=== PATIENT | male | born 1975 | race Caucasian/White ===

== ENCOUNTER 2019-01-14 13:37 | Inpatient (IN) | payer MEDICAID, OTHER ==
[2019-01-14] MEDS: HYDROmorphONE 0.5 MG/0.5 ML SYG IV ×4 (14:07→23:49)
[2019-01-14] MEDS: SOD CHLORIDE 0.9% 1,000 ML IV ×2 (14:07→19:33)
[2019-01-14] MEDS ORDERED: ONDANSETRON 4 MG INJ (14:09)
[2019-01-14] MEDS: HYDROmorphONE 2 MG/ML SYG IV (15:17)
[2019-01-14 18:28] LABS: ADD MAN DIFF? NO
[2019-01-14 18:30] LABS: WHITE BLOOD COUNT 13.1 10^3/ul (4.8-10.8)
[2019-01-14 18:30] LABS: BASOPHILS % 0.3 % (0.0-2.0); EOSINOPHILS % 0.3 % (0.0-7.0); HEMATOCRIT 43.1 % (42.0-52.0); HEMOGLOBIN 14.1 g/dl (14.0-18.0); LYMPHOCYTES # 1.2 10^3/ul (0.8-2.9); LYMPHOCYTES % 9.4 % (15.0-51.0); MEAN CORPUSCULAR HEMOGLOBIN 29.3 pg (29.0-33.0); MEAN CORPUSCULAR HGB CONC 32.7 g/dl (32.0-37.0); MEAN CORPUSCULAR VOLUME 89.4 fl (82.0-101.0); MEAN PLATELET VOLUME 10.4 fl (7.4-10.4); MONOCYTE # 0.9 10^3/ul (0.3-0.9); NEUTROPHIL # 10.8 10^3/ul (1.6-7.5); NEUTROPHILS % 82.6 % (39.0-77.0); PLATELET COUNT 246 10^3/UL (140-415); RED BLOOD COUNT 4.82 10^6/ul (4.70-6.10); RED CELL DISTRIBUTION WIDTH 13.6 % (11.5-14.5)
[2019-01-14 18:48] LABS: ANION GAP 9 (5-13); BLOOD UREA NITROGEN 9 mg/dl (7-20); CALCIUM 8.8 mg/dl (8.4-10.2); CARBON DIOXIDE 26 mmol/L (21-31); CHLORIDE 106 mmol/L (97-110); CREATININE 0.79 mg/dl (0.61-1.24); Estimated GFR > 60 mL/min (>60); GLUCOSE 101 mg/dl (70-220); POTASSIUM 4.1 mmol/L (3.5-5.1); SODIUM 141 mmol/L (135-144)
[2019-01-14] MEDS ORDERED: NACL 0.9% 3 ML SYG IV (19:00)
[2019-01-14] MEDS: HYDROmorphONE 1 MG/ML SYG IV (21:59)
[2019-01-14] MEDS: NICOTINE (14 MG/24 HR) PATCH TRANSDERM (22:53)
[2019-01-15] MEDS: HYDROCODONE/APAP (5/325) TAB PO ×3 (01:00→16:50)
[2019-01-15] MEDS: HYDROmorphONE 1 MG/ML SYG IV ×5 (04:13→19:43)
[2019-01-15 05:23] LABS: ADD MAN DIFF? NO
[2019-01-15 05:26] LABS: WHITE BLOOD COUNT 10.2 10^3/ul (4.8-10.8)
[2019-01-15 05:26] LABS: BASOPHILS % 0.4 % (0.0-2.0); EOSINOPHILS # 0.2 10^3/ul (0.0-0.5); EOSINOPHILS % 1.6 % (0.0-7.0); HEMATOCRIT 40.3 % (42.0-52.0); HEMOGLOBIN 13.4 g/dl (14.0-18.0); LYMPHOCYTES # 2.3 10^3/ul (0.8-2.9); LYMPHOCYTES % 22.4 % (15.0-51.0); MEAN CORPUSCULAR HEMOGLOBIN 29.4 pg (29.0-33.0); MEAN CORPUSCULAR HGB CONC 33.3 g/dl (32.0-37.0); MEAN CORPUSCULAR VOLUME 88.4 fl (82.0-101.0); MEAN PLATELET VOLUME 10.9 fl (7.4-10.4); MONOCYTE # 1.1 10^3/ul (0.3-0.9); MONOCYTES % 11.1 % (0.0-11.0); NEUTROPHIL # 6.6 10^3/ul (1.6-7.5); NEUTROPHILS % 64.1 % (39.0-77.0); PLATELET COUNT 253 10^3/UL (140-415); RED BLOOD COUNT 4.56 10^6/ul (4.70-6.10); RED CELL DISTRIBUTION WIDTH 13.4 % (11.5-14.5)
[2019-01-15 05:38] LABS: ANION GAP 8 (5-13); BLOOD UREA NITROGEN 7 mg/dl (7-20); CALCIUM 8.6 mg/dl (8.4-10.2); CARBON DIOXIDE 26 mmol/L (21-31); CHLORIDE 105 mmol/L (97-110); CREATININE 0.77 mg/dl (0.61-1.24); Estimated GFR > 60 mL/min (>60); GLUCOSE 107 mg/dl (70-220); POTASSIUM 3.7 mmol/L (3.5-5.1); SODIUM 139 mmol/L (135-144)
[2019-01-15 05:53] LABS: HEMOGLOBIN A1C 5.2 % (0-5.9)
[2019-01-15] MEDS: SOD CHLORIDE 0.9% 1,000 ML IV ×2 (08:15→20:59)
[2019-01-15] MEDS: NICOTINE (14 MG/24 HR) PATCH TRANSDERM (10:25)
[2019-01-15] MEDS: HYDROCODONE/APAP (10/325) TAB PO (22:00)
[2019-01-16] MEDS: HYDROmorphONE 1 MG/ML SYG IV ×3 (01:19→17:48)
[2019-01-16] MEDS: HYDROCODONE/APAP (10/325) TAB PO ×3 (04:21→21:41)
[2019-01-16] MEDS: NICOTINE (14 MG/24 HR) PATCH TRANSDERM (08:46)
[2019-01-16] MEDS: SOD CHLORIDE 0.9% 1,000 ML IV (10:55)
[2019-01-17] MEDS: HYDROmorphONE 1 MG/ML SYG IV ×4 (03:20→23:43)
[2019-01-17] MEDS: ONDANSETRON 4 MG INJ IV (06:46)
[2019-01-17] MEDS: NICOTINE (14 MG/24 HR) PATCH TRANSDERM (07:35)
[2019-01-17] MEDS: HYDROCODONE/APAP (10/325) TAB PO ×2 (07:35→21:48)
[2019-01-17] MEDS: POLYETHYLENE GLYCOL 17 GM PACKET PO (09:07)
[2019-01-17] MEDS: DOCUSATE SODIUM 100 MG CAP PO ×2 (09:07→20:58)
[2019-01-18] MEDS: HYDROmorphONE 1 MG/ML SYG IV (05:31)
[2019-01-18] MEDS: HYDROCODONE/APAP (10/325) TAB PO (08:23)
== END 2019-01-18 10:00 | disposition home or self-care (01) | DRG 563 ==
LOC: E/R 13:37 → MS1 17:57
DX: S52.022A Displaced fracture of olecranon process without intraarticular extension of left ulna, initial encounter for closed fracture (principal); S22.32XA Fracture of one rib, left side, initial encounter for closed fracture; S52.122A Displaced fracture of head of left radius, initial encounter for closed fracture; Z72.0 Tobacco use; V87.8XXA Person injured in other specified noncollision transport accidents involving motor vehicle (traffic), initial encounter; R51 Headache
CPT/HCPCS: 36415; 70450; 71045; 72125; 73020; 73060; 73070; 73200; 73562; 80048; 83036; 85025; 93005; 96361; 96374; 96376; 99285-25